=== PATIENT | female | born 1930 | race Caucasian/White ===

== ENCOUNTER 2019-03-31 10:36 | Inpatient (IN) | payer OTHER ==
[~2019-03-31] VITALS: Ht 152.4 cm; Wt 68.3 kg
[~2019-03-31 10:36] MED LIST: ACET500T98 PO; AMLO5TAB4 PO; ASPI-1044 PO; BICS PO; BROM1.7D9 OP; CLON-379 PO; CRAN425C4 PO; DOCU-144 PO; DOCU-29 PO; FAMO1TAB3 PO; FER325 PO; GABA300C16 PO; GLIP2.5T3 PO; HYDR25TA6 PO; INSU100C3 SQ; LACT10SO55 PO; LEVO112T57 PO; LOSA25TA2 PO; METF-849 PO; METO-319 PO; NITR0.4T32 SL; OXYC-281 PO; SIMV5TAB14 PO; SIMV5TAB31 PO; SITA100T11 PO; SITA25TA3 PO; ZOLP5TAB PO; [UNRECOGNIZED DRUG - CODE] IM
[2019-03-31] MEDS ORDERED: ONDANSETRON 4 MG INJ IV PRN ×2 (14:00→16:00)
[2019-03-31] MEDS ORDERED: ASPIRIN 81 MG TAB PO ONE (14:00)
[2019-03-31] MEDS ORDERED: ACETAMINOPHEN 325 MG TAB PO PRN ×2 (14:00→16:00)
--- NOTE | 2019-03-31 14:03 | ERD ---
ER Documentation Chief Complaint Chief Complaint CHEST TIGHTNESS TODAY. NO SOB. HPI This is an 88-year-old female with a past medical history of hypertension, hyperlipidemia, diabetes, coronary artery disease with a previous MN, CHF status post pacemaker, hypothyroidism who is presenting to the emergency department today for sudden onset moderate pressure-like mid substernal chest pressure radiating into the neck. The patient reports feeling a pressure in her head at this time as well. The patient reports that her symptoms lasted approximately 20 to 30 minutes before improving. However, she continues to endorse a mild pressure in her chest, which is unusual. She endorses shortness of breath during the episode as well, but this is improved now. She does not endorse any diaphoresis. She does not endorse any nausea or vomiting. The patient denies lightheadedness or dizziness. The patient denies feeling sick recently. The patient denies fever or chills. The patient has had no headache or vision changes. The patient does not endorse neck or back pain. The patient denies abdominal pain. The patient denies ch anges to bowel movements or urination. The patient has had no focal deficits. The patient has had no weakness or numbness or tingling to the face or extremities. ROS All systems reviewed and are negative except as per history of present illness. Medications Home Meds Reported Medications Famotidine/Ca Carb/Mag Hydrox (TUMS DUAL ACTION TABLET CHEW) 1 Each Tab.chew, 2 TAB PO DAILY, TAB.CHEW 03/31/19 Citric Acid/Sodium Citrate* (Bicitra* (PEDIATRIC)) 1 Meq/Ml Soln, 30 ML PO BID for 30 Days, BOTTLE 03/31/19 Simvastatin* (Simvastatin*) 5 Mg Tablet, 5 MG PO QHS, #30 TAB 03/31/19 Metoprolol Succinate* (Toprol XL*) 50 Mg Tab.er.24h, 50 MG PO DAILY, #30 TAB 03/31/19 Levothyroxine Sodium* (Levothyroxine Sodium*) 112 Mcg Tablet, 112 MCG PO BEFORE BREAKFAST, #30 TAB 03/31/19 Sitagliptin* (Januvia*) 25 Mg Tablet, 25 MG PO DAILY, #30 TAB 03/31/19 Hydrochlorothiazide* (Hydrochlorothiazide*) 25 Mg Tab, 25 MG PO DAILY, #30 TAB 03/31/19 Glipizide* (Glipizide ER*) 2.5 Mg Tab.er.24, 2.5 MG PO BID, TAB 03/31/19 Gabapentin* (Gabapentin*) 300 Mg Capsule, 300 MG PO DAILY, #60 CAP 03/31/19 Ferrous Sulfate* (Ferrous Sulfate*) 325 Mg Tabec, 325 MG PO TID, TAB 03/31/19 Docusate Sodium* (Colace*) 100 Mg Capsule, 100 MG PO DAILY, #30 CAP 03/31/19 Clonidine Hcl* (Clonidine Hcl*) 0.1 Mg Tab, 0.1 MG PO Q8, TAB 03/31/19 Bromfenac Sodium (Bromfenac Sodium) 1.7 Ml Drops, 1.7 ML OP QPM, BOTTLE 03/31/19 Discontinued Reported Medications Nitroglycerin* (Nitroglycerin* SL) 0.4 Mg Tab.subl, 0.4 MG SL CHEST [id number] PRN 11/11/12 Zolpidem Tartrate* (Ambien*) 5 Mg Tablet, 5 MG PO HS PRN 11/11/12 Oxycodone Hcl-Acetaminophen* (Percocet*) 1 Tab Tablet, 1 TAB PO Q3H PRN 11/11/12 Morphine Sulfate (Morphine) 2 Mg/Ml Soln, 3 MG IM SEVERE PAIN PRN 11/11/12 Lactulose (Lactulose) 10 G/15 Ml Solution, 30 G PO CONSTIPATION PRN 11/11/12 Insulin Aspart (Novolog) 100 U/Ml Cartridge, 0 SQ SLIDING SCALE 11/11/12 Docusate Sodium (Dss) 100 Mg Capsule, 200 MG PO PRN 11/11/12 Cranberry Extract (Cranberry Juice Powder) 425 Mg Capsule, 425 MG PO TID 11/11/12 Metformin* (Glucophage*) 500 Mg Tab, 250 MG PO BID 11/11/12 Amlodipine Besylate* (Norvasc*) 5 Mg Tablet, 5 MG PO DAILY 11/11/12 Losartan Potassium* (Cozaar*) 25 Mg Tablet, 12.5 MG PO BID 11/11/12 Simvastatin* (Zocor*) 5 Mg Tablet, 5 MG PO HS 11/11/12 Levothyroxine Sodium* (Levothyroxine Sodium*) 112 Mcg Tablet, 112 MCG PO DAILY 11/02/12 Acetaminophen (Tylenol) 500 Mg Tab, 500 MG PO PRN 07/27/12 Sitagliptin* (Januvia*) 100 Mg Tablet, 100 MG PO DAILY 07/27/12 Allergies Allergies: Coded Allergies: codeine (Verified Allergy, Unknown, 03/31/19) PMhx/Soc History of Surgery: Yes (2 PREVIOUS LT KNEE SURG.) Anesthesia Reaction: No Hx Neurological Disorder: No Hx Respiratory Disorders: No Hx Cardiac Disorders: Yes (Hypertension, hyperlipidemia, diabetes, coronary disease, MN 2008; PACEMAKER 02/2012) Hx Psychiatric Problems: Yes (REMOTE HISTORY OF HOSPITALIZATION) Hx Miscellaneous Medical Probl: Yes (Hypothyroidism) Hx Alcohol Use: No Hx Substance Use: No Hx Tobacco Use: No Smoking Status: Never smoker FmHx Family History: diabetes Physical Exam Vitals Vital Signs Date Temp Pulse Resp B/P (MAP) Pulse Ox O2 O2 Flow FiO2 Time Delivery Rate 03/31/19 Nasal 2 12:08 Cannula 03/31/19 97.8 60 20 160/84 95 10:51 (109) Physical Exam Const: No apparent distress, well-developed, well-nourished Head: Normocephalic, Atraumatic Eyes: Normal Conjunctiva. Pupils are oblong from previous ophthalmologic surgery. ENT: Normal External Ears, Nose and Mouth. Neck: Full range of motion. No meningismus. Resp: Clear to auscultation bilaterally, No wheezes, rales or rhonchi Cardio: Regular rate and rhythm. No murmurs, rubs or gallops. Pacemaker present. Abd: Soft, non tender, non distended. Normal bowel sounds Skin: No petechiae or rashes Back: No midline tenderness. No CVA tenderness Ext: No cyanosis, or edema Neur: Awake and alert, oriented 4. Cranial nerves intact. No facial droop. Normal strength, sensation and coordination. Psych: Normal Mood and Affect Result Diagram: 03/31/19 1128 03/31/19 1128 Results 24 hrs Laboratory Tests Test 03/31/19 11:28 White Blood Count 9.9 10^3/ul Red Blood Count 3.42 10^6/ul Hemoglobin 11.5 g/dl Hematocrit 35.9 % Mean Corpuscular Volume 105.0 fl Mean Corpuscular Hemoglobin 33.6 pg Mean Corpuscular Hemoglobin Concent 32.0 g/dl Red Cell Distribution Width 12.8 % Platelet Count 184 10^3/UL Mean Platelet Volume 11.4 fl Immature Granulocytes % 0.700 % Neutrophils % 61.6 % Lymphocytes % 16.4 % Monocytes % 7.1 % Eosinophils % 13.6 % Basophils % 0.6 % Nucleated Red Blood Cells % 0.0 /100WBC Immature Granulocytes # 0.070 10^3/ul Neutrophils # 6.1 10^3/ul Lymphocytes # 1.6 10^3/ul Monocytes # 0.7 10^3/ul Eosinophils # 1.3 10^3/ul Basophils # 0.1 10^3/ul Nucleated Red Blood Cells # 0.0 10^3/ul Prothrombin Time 13.5 Sec Prothrombin Time Ratio 1.1 INR International Normalized Ratio 1.02 Sodium Level 135 mmol/L Potassium Level 4.1 mmol/L Chloride Level 100 mmol/L Carbon Dioxide Level 25 mmol/L Anion Gap 10 Blood Urea Nitrogen 45 mg/dl Creatinine 3.34 mg/dl Est Glomerular Filtrat Rate mL/min mL/min Glucose Level 168 mg/dl Calcium Level 9.3 mg/dl Troponin I 0.020 ng/ml B-Type Natriuretic Peptide 1410 PG/ML Procedures/MDM MDM The patient's presentation warrants further investigation. Previous medical records, if available, were reviewed. LABS The patient's laboratory testing was obtained and reviewed. No emergent treatmen t was required unless described below. CBC: No E/o systemic infection or thrombocytopenia. Macrocytic anemia, not emergent. Chemistry: No E/o severe acidosis or alkalosis or diabetic ketoacidosis. Elevated creatinine concerning for acute kidney injury, though her previous blood work was from 2012. Troponin: Not negative but within normal limits BNP: Elevated, though in the setting of renal insufficiency. EKG EKG read by me: Rate/Rhythm: Junctional rhythm with a regular rate of 60 bpm Intervals: Normal QRS and QTc. No obvious P waves present. [place]: Left axis deviation Impression: T wave inversions in the lateral leads concerning for age- indeterminate ischemia. Junctional rhythm IMAGING Imaging and Radiology interpretation reviewed. CXR FINDINGS: Left chest pacemaker unchanged in appearance. Minimal basilar atelectasis. No acute air space infiltrates. No pleural effusion. No pneumothorax. The cardiomediastinal silhouette is unremarkable. IMPRESSION: Minimal basilar atelectasis. No acute air space infiltrates. Electronically viewed and signed by Darin Wiggins MD, on 03/31/2019 11:46 TREATMENT/DISPOSITION The patient presents for chest pain. The patient has lateral EKG changes. The patient's troponin is within normal limits, but it is not negative. The patient has a significant cardiac history including myocardial infarction. The patient's heart score is greater than 3, which places her beyond a low risk of an adverse cardiac event in the next 30 days. The patient was given a dose of aspirin in the emergency department. I do feel that she requires further assessment in the hospital. The patient's BNP is elevated, but this is in the setting of renal insufficiency. I do not see evidence of an acute heart failure exacerbation at this time. I do see a junctional rhythm on the EKG. The patient may benefit from pacemaker evaluation as well. The patient's chest xray does not reveal pneumonia or pneumothorax or pleural effusions or pulmonary edema. The patient does not have a widened mediastinum and does not have signs or symptoms concerning for thoracic aortic aneurysm or dissection. The patient does not have pneumomediastinum or signs concerning for esophageal tear or rupture. The patient has no clinical or radiographic signs of pericardial effusion or tamponade. The patient does not have pneumoperitoneum and I have decreased suspicion of viscus perforation as possible referred pain. The patient does not have a diagnosis of COPD and is not wheezing today. The patient is not tachypneic or hypoxic. The patient is breathing comfortably and without pleuritic pain. The patient is not on hormonal therapy. The patient has no history of clotting or bleeding disorders. The patient has no calf tenderness. The patient has had no hemoptysis. I have decreased suspicion for PE. The patient's creatinine is also quite elevated. This is of unclear chronicity. The patient's last blood work was drawn here in 2012. She had a normal renal function at that time. ADMISSION At this time, I feel that the patient requires admission for further evaluation and management. The patient will be admitted to panel in accordance with the patient's insurance. The patient was accepted by Dr. Kennedy at 1:50 PM on March 31, 2019. DISCLAIMER Inadvertent spelling and grammatical errors are likely due to EHR/dictation software use and do not reflect on the overall quality of patient care. Note that the electronic time recorded on this note does not necessarily reflect the actual time of the patient encounter. Departure Diagnosis: Primary Impression: Chest pain Chest pain type: unspecified Qualified Codes: R07.9 - Chest pain, unspecified Additional Impressions: Renal insufficiency Macrocytic anemia Elevated brain natriuretic peptide (BNP) level Condition: Serious CLEO DAWN MD Mar 31, 2019 14:01
--- NOTE | 2019-03-31 15:55 | HP ---
Date/Time of Note Date/Time of Note DATE: 03/31/19 TIME: 15:55 Assessment/Plan VTE Prophylaxis Pharmacological prophylaxis: heparin Lines/Catheters IV [facility]from [facility]ine [facility] Assessment/Plan Hospital Course 88-year-old female with comorbidities including HTN, DM type 2, hypothyroidism, CKD, PPM, and anemia, who came in with chest pain and will be admitted to inpatient setting. 1. Chest pain. Etiology unclear. Differentials including ACS versus muscular skeletal versus others. Less likely PE, provided the patient is saturating well. Obtain 2D echocardiogram to evaluate the left ventricular ejection fraction and to evaluate for any wall motion abnormalities. Trend troponins. Obtain cardiology consult. Continue aspirin. 2. Hypertension. Resume antihypertensives. Hold HCTZ. 3. Chronic kidney disease. Follows up with outpatient motor vehicle operator road supervisor. Continue to monitor BUN and creatinine closely. Use nephrotoxic drugs with caution. 4. Diabetes mellitus type 2. Hold oral agents. Start the patient on sliding scale insulin along with basal insulin. Obtain hemoglobin A1c to evaluate the blood glucose control over the past few weeks. 5. Chronic anemia. Resume iron supplements. 6. Permanent pacemaker status. Obtain cardiology evaluation. 7. Right heel ulcer. Follows up with the wound care clinic at [facility]. Inform the patient's vascular surgeon about the patient's admission. Plan: The patient will be admitted to inpatient telemetry floor. The patient will be started on a carbohydrate controlled, renal diet. The patient will be started on DVT prophylaxis and gastrointestinal prophylaxis. The patient will remain a full code. Activities will be as tolerated. The rest of the patient's management will be based on the clinical course, inputs from consultants, and the results of diagnostic studies. Based on the patient's clinical presentation, she most probably requires at least 1 midnight's stay for further management and evaluation of her clinical presentation. The patient was seen in collaboration with Dr. Kennedy. Result Diagram: 03/31/19 1128 03/31/19 1128 Results 24hrs Laboratory Tests Test 03/31/19 11:28 White Blood Count 9.9 Red Blood Count 3.42 L Hemoglobin 11.5 L Hematocrit 35.9 L Mean Corpuscular Volume 105.0 H Mean Corpuscular Hemoglobin 33.6 H Mean Corpuscular Hemoglobin Concent 32.0 Red Cell Distribution Width 12.8 Platelet Count 184 Mean Platelet Volume 11.4 H Immature Granulocytes % 0.700 H Neutrophils % 61.6 Lymphocytes % 16.4 Monocytes % 7.1 Eosinophils % 13.6 H Basophils % 0.6 Nucleated Red Blood Cells % 0.0 Immature Granulocytes # 0.070 H Neutrophils # 6.1 Lymphocytes # 1.6 Monocytes # 0.7 Eosinophils # 1.3 H Basophils # 0.1 Nucleated Red Blood Cells # 0.0 Prothrombin Time 13.5 Prothrombin Time Ratio 1.1 INR International Normalized Ratio 1.02 Sodium Level 135 Potassium Level 4.1 Chloride Level 100 Carbon Dioxide Level 25 Anion Gap 10 Blood Urea Nitrogen 45 H Creatinine 3.34 H Est Glomerular Filtrat Rate mL/min Glucose Level 168 Calcium Level 9.3 Troponin I 0.020 B-Type Natriuretic Peptide 1410 H HPI/ROS Admit Date/Time Admit Date/Time Hx of Present Illness Reason for admission: Chest pain. Consultants 1. Rashad Chaney, Cardiology. This is a 88-year-old female with past medical history of hypertension, diabetes mellitus type 2, hypothyroidism, chronic kidney disease who follows up with , chronic anemia, chronic constipation, and a history of permanent pacemaker placement. The patient came to the emergency room with chief complaint of chest pain that started since the night of 03/30/2019. The patient verbalized the chest pain as constant chest tightness. The patient was also verbalizing headache in the occipital area associated with the chest pain. The patient denied any radiation of the chest pain to her arms. She denied any nausea, vomiting, or diaphoresis. However, she was complaining of frequent belching on 03/31/2019. The patient denied any dizziness. She denied any changes in vision. She denied any fevers or chills. She denied any dyspnea or cough. The patient follows up with outpatient workday consultant, Dr. Chen. As per the patient, she had her permanent pacemaker checked recently and was told she needs to have the PPM battery replaced in the near future. Although, the patient verbalized that she had a heart attack, she denied any history of coronary angiogram, angioplasty, or stent placement. In the emergency room, the patient was noticed to have a blood pressure 160/84. The patient's initial set of troponin was negative. The patient's chest x-ray was showing minimal bibasilar atelectasis. Twelve-lead EKG was showing junctional rhythm. She was treated with a single dose of aspirin 324 mg orally. ROS Constitutional: no complaints Eyes: discharge ENT: no complaints Respiratory: no complaints Cardiovascular: chest pain, edema Gastrointestinal: other (reflux) Genitourinary: no complaints Musculoskeletal: no complaints Skin: skin lesions Neurologic: no complaints Endocrine: no complaints Lymphatic: no complaints Psychological: no complaints Immunologic: no complaints PMH/Family/Social Past Medical History 1. Hypertension. 2. Diabetes mellitus type 2. 3. Hypothyroidism. 4. Chronic kidney disease. 5. Anemia. 6. Chronic constipation. 7. Permanent pacemaker. 8. Right heel ulcer. 9. Medications Current Medications Ondansetron HCl (Zofran Inj) 4 mg ER BRIDGE PRN IV NAUSEA/VOMITING; Start 03/31/19 at 14:00; Stop 04/01/19 at 13:59 Acetaminophen (Tylenol Tab) 650 mg ER BRIDGE PRN PO .MILD PAIN 1-3 OR TEMP; Start 03/31/19 at 14:00; Stop 04/01/19 at 13:59 Coded Allergies: codeine (Verified Allergy, Unknown, 03/31/19) Past Surgical History 1. Cholecystectomy. 2. Hysterectomy. 3. Bilateral knee surgery. 4. Right shoulder surgery. Family History Significant Family History: diabetes Social History Lives at home with her . Alcohol Use: none Smoking Status: Never smoker Drug Use: none Exam/Review of Systems Vital Signs Vitals Vital Signs Date Temp Pulse Resp B/P (MAP) Pulse Ox O2 O2 Flow FiO2 Time Delivery Rate 03/31/19 98.2 60 20 143/78 100 Room Air 13:44 (99) 03/31/19 2 12:08 Exam Exam General: Adequately build 88 year-old female lying in bed in no apparent distress. HEENT: Normocephalic, atraumatic. Eyes: Anicteric sclerae, conjunctivae clear. ENT: Nasal septum midline, oral mucosa moist. Neck supple. Respiratory: Bilaterally diminished breath sounds. Basilar rales. Cardiovascular: S1, S2 heard. No murmurs or gallops. Abdomen: Soft, nontender, and nondistended. Bowel sounds positive in all 4 quadrants. Genitourinary: Deferred. Extremities: No cyanosis, no clubbing. Right knee and right lower extremity edema. Right heel dressing. Surgical scars on bilateral knees. Surgical scar over right shoulder. Neurologic: Cranial nerves II through XII grossly intact. The patient is awake, alert, and oriented. Skin: Papular lesions on the right miramontes that is erythematous. Additional Comments CXR IMPRESSION: Minimal basilar atelectasis. No acute air space infiltrates. LIBRA MEREDITH NP Mar 31, 2019 15:55
[2019-03-31] MEDS ORDERED: NACL 0.9% 3 ML SYG IV SCH (16:00)
[2019-03-31] MEDS ORDERED: HYDROCODONE/APAP (5/325) TAB PO PRN (16:00)
[2019-03-31] MEDS ORDERED: NITROGLYCERIN (SL) 0.4 MG TAB SL PRN (16:00)
--- NOTE | 2019-03-31 16:28 | CONS ---
Assessment/Plan Assessment/Plan Hospital Course (Demo Recall) Chest pain: The main component of her symptoms was the headache but she did also have chest pain. Initial EKG and troponin are unremarkable. Will need serial trops and will plan for MPI in am. Unless high risk territory or NSTEMI, plan is for medical management with her renal dysfunction Headache PPM: Verimed 2011. Per , it is at end of life and needs a battery change which is being planned in 1-2 months. Currently atrial paced HTN CKD: unknown baseline Cr 3.3 on admission -Lexiscan in am -trend trops -ASA, simvastatin -metoprolol succ 50mg Consultation Date/Type/Reason Admit Date/Time Date of Consultation: Mar 31, 2019 Type of Consult Cardiology Reason for Consultation Chest pain Requesting Provider: LIBRA MEREDITH NP Date/Time of Note DATE: 03/31/19 TIME: 16:20 Hx of Present Illness 88 yo F with a h/o PPM Verimed 2011, HTN, CKD (unknown baseline), who presented with chest pain and headache. She notes that yesterday she was sitting down when she started to feel a headache and tightness in her chest. She had never felt this so she was worried. The headache was worse than the chest pain. She slept and when she woke up she still had mild symptoms so she decided to come in for evaluation. Her chest pain resolved before she came in but she still has a very mild headache. Otherwise no complaints. She denies prior RI/CAD/PCI. Her physicians are all in [place]. per hPI Past Medical History per hPI Home Meds Reported Medications Famotidine/Ca Carb/Mag Hydrox (TUMS DUAL ACTION TABLET CHEW) 1 Each Tab.chew, 2 TAB PO DAILY, TAB.CHEW 03/31/19 Citric Acid/Sodium Citrate* (Bicitra* (PEDIATRIC)) 1 Meq/Ml Soln, 30 ML PO BID for 30 Days, BOTTLE 03/31/19 Simvastatin* (Simvastatin*) 5 Mg Tablet, 5 MG PO QHS, #30 TAB 03/31/19 Metoprolol Succinate* (Toprol XL*) 50 Mg Tab.er.24h, 50 MG PO DAILY, #30 TAB 03/31/19 Levothyroxine Sodium* (Levothyroxine Sodium*) 112 Mcg Tablet, 112 MCG PO BEFORE BREAKFAST, #30 TAB 03/31/19 Sitagliptin* (Januvia*) 25 Mg Tablet, 25 MG PO DAILY, #30 TAB 03/31/19 Hydrochlorothiazide* (Hydrochlorothiazide*) 25 Mg Tab, 25 MG PO DAILY, #30 TAB 03/31/19 Glipizide* (Glipizide ER*) 2.5 Mg Tab.er.24, 2.5 MG PO BID, TAB 03/31/19 Gabapentin* (Gabapentin*) 300 Mg Capsule, 300 MG PO DAILY, #60 CAP 03/31/19 Ferrous Sulfate* (Ferrous Sulfate*) 325 Mg Tabec, 325 MG PO TID, TAB 03/31/19 Docusate Sodium* (Colace*) 100 Mg Capsule, 100 MG PO DAILY, #30 CAP 03/31/19 Clonidine Hcl* (Clonidine Hcl*) 0.1 Mg Tab, 0.1 MG PO Q8, TAB 03/31/19 Bromfenac Sodium (Bromfenac Sodium) 1.7 Ml Drops, 1.7 ML OP QPM, BOTTLE 03/31/19 Discontinued Reported Medications Nitroglycerin* (Nitroglycerin* SL) 0.4 Mg Tab.subl, 0.4 MG SL CHEST [id number] PRN 11/11/12 Zolpidem Tartrate* (Ambien*) 5 Mg Tablet, 5 MG PO HS PRN 11/11/12 Oxycodone Hcl-Acetaminophen* (Percocet*) 1 Tab Tablet, 1 TAB PO Q3H PRN 11/11/12 Morphine Sulfate (Morphine) 2 Mg/Ml Soln, 3 MG IM SEVERE PAIN PRN 11/11/12 Lactulose (Lactulose) 10 G/15 Ml Solution, 30 G PO CONSTIPATION PRN 11/11/12 Insulin Aspart (Novolog) 100 U/Ml Cartridge, 0 SQ SLIDING SCALE 11/11/12 Docusate Sodium (Dss) 100 Mg Capsule, 200 MG PO PRN 11/11/12 Cranberry Extract (Cranberry Juice Powder) 425 Mg Capsule, 425 MG PO TID 11/11/12 Metformin* (Glucophage*) 500 Mg Tab, 250 MG PO BID 11/11/12 Amlodipine Besylate* (Norvasc*) 5 Mg Tablet, 5 MG PO DAILY 11/11/12 Losartan Potassium* (Cozaar*) 25 Mg Tablet, 12.5 MG PO BID 11/11/12 Simvastatin* (Zocor*) 5 Mg Tablet, 5 MG PO HS 11/11/12 Levothyroxine Sodium* (Levothyroxine Sodium*) 112 Mcg Tablet, 112 MCG PO DAILY 11/02/12 Acetaminophen (Tylenol) 500 Mg Tab, 500 MG PO PRN 07/27/12 Sitagliptin* (Januvia*) 100 Mg Tablet, 100 MG PO DAILY 07/27/12 Medications Current Medications Ondansetron HCl (Zofran Inj) 4 mg ER BRIDGE PRN IV NAUSEA/VOMITING; Start 03/31/19 at 14:00; Stop 04/01/19 at 13:59 Acetaminophen (Tylenol Tab) 650 mg ER BRIDGE PRN PO .MILD PAIN 1-3 OR TEMP; Start 03/31/19 at 14:00; Stop 04/01/19 at 13:59 IV Flush (NS 3 ml) 3 ml PER PROTOCOL IV ; Start 03/31/19 at 16:00 Ondansetron HCl (Zofran Inj) 4 mg Q6H PRN IV NAUSEA/VOMITING; Start 03/31/19 at 16:00 Nitroglycerin (Nitroglycerin (Sl Tab) 0.4 Mg) 1 tab Q5M PRN SL .CHEST PAIN; Start 03/31/19 at 16:00 Acetaminophen (Tylenol Tab) 650 mg Q6H PRN PO .PAIN 1-3 OR TEMP; Start 03/31/19 at 16:00 Acetaminophen/ Hydrocodone Bitart ([place] (5/325)) 1 tab Q6H PRN PO .PAIN 4-6; Start 03/31/19 at 16:00 Heparin Sodium (Porcine) (Heparin (5000 Units/1ml)) 5,000 unit Q12 SC ; Start 03/31/19 at 21:00 Citric Acid/ Sodium Citrate (Bicitra) 30 ml BID PO ; Start 03/31/19 at 21:00 Clonidine (Catapres) 0.1 mg Q8 PO ; Start 03/31/19 at 22:00 Docusate Sodium (Colace) 100 mg DAILY PO ; Start 04/01/19 at 09:00 Ferrous Sulfate (Ferrous Sulfate (Ec)) 325 mg TID PO ; Start 03/31/19 at 21:00 Gabapentin (Neurontin) 300 mg DAILY PO ; Start 04/01/19 at 09:00 Levothyroxine Sodium (Synthroid) 112 mcg BEFORE BREAKFAST PO ; Start 04/01/19 at 07:00 Metoprolol Succinate (Toprol Xl) 50 mg DAILY PO ; Start 04/01/19 at 09:00 Miscellaneous Information 5 mg QHS PO ; Start 03/31/19 at 21:00; Status UNV Aspirin (Halfprin) 81 mg DAILY PO ; Start 04/01/19 at 09:00; Status UNV Miscellaneous Information (* Miscellaneous Pharmacy Order) Discontinue current oral sulfonylur... ONCE ONCE XX ; Start 03/31/19 at 16:30; Stop 03/31/19 at 16:31; Status UNV Insulin Glargine (Lantus) 10 units DAILY@2000 SC ; Start 03/31/19 at 20:00; Status UNV Miscellaneous Information (* Miscellaneous Pharmacy Order) HYPOGLYCEMIA PROTOCOL w... ONCE ONCE XX ; Start 03/31/19 at 16:30; Stop 03/31/19 at 16:31; Status UNV Insulin Aspart (Novolog Insulin Pen) NOVOLOG *MILD* ALGORITHM WITH MEALS BEDTIME SC ; Start 03/31/19 at 18:00; Status UNV Allergies: Coded Allergies: codeine (Verified Allergy, Unknown, 03/31/19) Social History Alcohol Use: none Smoking Status: Never smoker Drug Use: none Exam/Review of Systems Vital Signs Vitals Vital Signs Date Temp Pulse Resp B/P (MAP) Pulse Ox O2 O2 Flow FiO2 Time Delivery Rate 03/31/19 98.2 60 20 143/78 100 Room Air 13:44 (99) 03/31/19 2 12:08 Exam Constitutional: alert, oriented Psych: no complaints, nl mood/affect Head: normocephalic, atraumatic Neck: No jvd Respiratory: clear to auscultation; No crackles/rales Cardiovascular: regular rate and rhythm; No edema, No systolic murmur Gastrointestinal: soft, non-tender; No distended Neurological: nl mental status, nl speech Labs Result Diagram: 03/31/19 1128 03/31/19 1128 Results 24hrs Laboratory Tests Test 03/31/19 11:28 White Blood Count 9.9 Red Blood Count 3.42 L Hemoglobin 11.5 L Hematocrit 35.9 L Mean Corpuscular Volume 105.0 H Mean Corpuscular Hemoglobin 33.6 H Mean Corpuscular Hemoglobin Concent 32.0 Red Cell Distribution Width 12.8 Platelet Count 184 Mean Platelet Volume 11.4 H Immature Granulocytes % 0.700 H Neutrophils % 61.6 Lymphocytes % 16.4 Monocytes % 7.1 Eosinophils % 13.6 H Basophils % 0.6 Nucleated Red Blood Cells % 0.0 Immature Granulocytes # 0.070 H Neutrophils # 6.1 Lymphocytes # 1.6 Monocytes # 0.7 Eosinophils # 1.3 H Basophils # 0.1 Nucleated Red Blood Cells # 0.0 Prothrombin Time 13.5 Prothrombin Time Ratio 1.1 INR International Normalized Ratio 1.02 Sodium Level 135 Potassium Level 4.1 Chloride Level 100 Carbon Dioxide Level 25 Anion Gap 10 Blood Urea Nitrogen 45 H Creatinine 3.34 H Est Glomerular Filtrat Rate mL/min Glucose Level 168 Calcium Level 9.3 Troponin I 0.020 B-Type Natriuretic Peptide 1410 H Medications Medications Current Medications Ondansetron HCl (Zofran Inj) 4 mg ER BRIDGE PRN IV NAUSEA/VOMITING; Start at 14:00; Stop 04/01/19 at 13:59 Acetaminophen (Tylenol Tab) 650 mg ER BRIDGE PRN PO .MILD PAIN 1-3 OR TEMP; Start 03/31/19 at 14:00; Stop 04/01/19 at 13:59 IV Flush (NS 3 ml) 3 ml PER PROTOCOL IV ; Start 03/31/19 at 16:00 Ondansetron HCl (Zofran Inj) 4 mg Q6H PRN IV NAUSEA/VOMITING; Start 03/31/19 at 16:00 Nitroglycerin (Nitroglycerin (Sl Tab) 0.4 Mg) 1 tab Q5M PRN SL .CHEST PAIN; Start 03/31/19 at 16:00 Acetaminophen (Tylenol Tab) 650 mg Q6H PRN PO .PAIN 1-3 OR TEMP; Start 03/31/19 at 16:00 Acetaminophen/ Hydrocodone Bitart ([place] (5/325)) 1 tab Q6H PRN PO .PAIN 4-6; Start 03/31/19 at 16:00 Heparin Sodium (Porcine) (Heparin (5000 Units/1ml)) 5,000 unit Q12 SC ; Start 03/31/19 at 21:00 Citric Acid/ Sodium Citrate (Bicitra) 30 ml BID PO ; Start 03/31/19 at 21:00 Clonidine (Catapres) 0.1 mg Q8 PO ; Start 03/31/19 at 22:00 Docusate Sodium (Colace) 100 mg DAILY PO ; Start 04/01/19 at 09:00 Ferrous Sulfate (Ferrous Sulfate (Ec)) 325 mg TID PO ; Start 03/31/19 at 21:00 Gabapentin (Neurontin) 300 mg DAILY PO ; Start 04/01/19 at 09:00 Levothyroxine Sodium (Synthroid) 112 mcg BEFORE BREAKFAST PO ; Start 04/01/19 at 07:00 Metoprolol Succinate (Toprol Xl) 50 mg DAILY PO ; Start 04/01/19 at 09:00 Miscellaneous Information 5 mg QHS PO ; Start 03/31/19 at 21:00; Status UNV Aspirin (Halfprin) 81 mg DAILY PO ; Start 04/01/19 at 09:00; Status UNV Miscellaneous Information (* Miscellaneous Pharmacy Order) Discontinue current oral sulfonylur... ONCE ONCE XX ; Start 03/31/19 at 16:30; Stop 03/31/19 at 16:31; Status UNV Insulin Glargine (Lantus) 10 units DAILY@2000 SC ; Start 03/31/19 at 20:00; Status UNV Miscellaneous Information (* Miscellaneous Pharmacy Order) HYPOGLYCEMIA PROTOCOL w... ONCE ONCE XX ; Start 03/31/19 at 16:30; Stop 03/31/19 at 16:31; Status UNV Insulin Aspart (Novolog Insulin Pen) NOVOLOG *MILD* ALGORITHM WITH MEALS BEDTIME SC ; Start 03/31/19 at 18:00; Status UNV NAA CAI Mar 31, 2019 16:28
[2019-03-31] MEDS ORDERED: DEXTROSE 50% 50 ML SYRINGE IV PRN ×2 (16:30)
[2019-03-31] MEDS ORDERED: GLUCOSE GEL 15 GRAM TUBE PO PRN ×2 (16:30)
[2019-03-31] MEDS ORDERED: GLUCAGON 1 MG INJ IM PRN (16:30)
[2019-03-31] MEDS ORDERED: GLUCOSE GEL 15 GRAM TUBE BUCCAL PRN (16:30)
[2019-03-31] MEDS: INSULIN ASPART [NOVOLOG] 3 ML PEN SC SCH ×2 (18:00→21:14)
[2019-03-31 18:29] VITALS: Ht 152.4 cm; Wt 68.3 kg
[2019-03-31 18:41] VITALS: PULSE 61; RESP 18
[2019-03-31 18:51] VITALS: BP 193/88
[2019-03-31 19:53] VITALS: BP 179/88; PULSE 60; RESP 18
[2019-03-31] MEDS ORDERED: INSULIN GLARGINE [LANTus] (100 UNITS/ML) SYG SC SCH (20:00)
[2019-03-31] MEDS: CITRIC ACID/NA CITRATE 30 ML CUP PO SCH (20:48)
[2019-03-31] MEDS: FERROUS SULFATE (EC) 325 MG TAB PO SCH (20:49)
[2019-03-31] MEDS ORDERED: ATORVASTATIN 10 MG TAB PO SCH (21:00)
[2019-03-31] MEDS ORDERED: FAMOTIDINE 20 MG TAB PO SCH (21:00)
[2019-03-31] MEDS ORDERED: NON-FORMULARY/PATIENT OWN MED (Simvastatin* 5 MG) PO SCH (21:00)
[2019-03-31] MEDS: HEPARIN 5,000 UNIT/1 ML VIAL SC SCH (21:15)
[2019-03-31 21:33] VITALS: BP 159/72; PULSE 60
[2019-03-31 23:25] VITALS: BP 145/61; PULSE 60; RESP 20
[2019-04-01 04:00] VITALS: BP 137/69; PULSE 60; RESP 17
[2019-04-01] MEDS ORDERED: LEVOTHYROXINE 112 MCG TAB PO SCH (07:00)
[2019-04-01 07:15] VITALS: BP 136/62; PULSE 60; RESP 18
[2019-04-01] MEDS: INSULIN ASPART [NOVOLOG] 3 ML PEN SC SCH ×2 (08:08→12:31)
[2019-04-01] MEDS: FERROUS SULFATE (EC) 325 MG TAB PO SCH ×2 (08:17→13:15)
[2019-04-01] MEDS: CITRIC ACID/NA CITRATE 30 ML CUP PO SCH (08:17)
[2019-04-01] MEDS: HEPARIN 5,000 UNIT/1 ML VIAL SC SCH (08:24)
[2019-04-01] MEDS ORDERED: GABAPENTIN 300 MG CAP PO SCH (09:00)
[2019-04-01] MEDS ORDERED: METOPROLOL (XL) 50 MG TAB PO SCH (09:00)
[2019-04-01] MEDS ORDERED: DOCUSATE SODIUM 100 MG CAP PO SCH (09:00)
[2019-04-01] MEDS ORDERED: ASPIRIN (EC) 81 MG TAB PO SCH (09:00)
[2019-04-01] MEDS ORDERED: REGADENOSON 0.4 MG/5 ML SYG ONE (09:07)
--- NOTE | 2019-04-01 09:51 | RADRPT ---
Echocardiogram Report Patient Name: MI PACEatient ID: [id number] : 10 (88y 11m)Study Date: 04/01/2019 7:31:33 AM Gender: FAccession #: [id number] Tech: Sagar Dawson [facility] Location: 504 Ref.Physician: LIBRA MEREDITH Height(Cm): BSA: Weight(Kg): Quality: AdequateOrder Physician: LIBRA MEREDITH Account #: Procedures: Echocardiographic Report: Transthoracic echocardiogram with complete 2D, M-Mode, and doppler examination. Indications: Chest Pain. Measurements: 2D/M Mode Doppler Measurement Value Normal Range Measurement Value Normal Range LVIDd 2D 3.4 [ 3.8 - 5.2 ] cm AV Peak Dominik 1.3 [ 100.0 - 170.0 ] cm/sec LVIDs 2D 1.6 [ 2.2 - 3.5 ] cm AV Peak PG 7.0 [ 2.0 - 9.0 ] mmHg LVPWd 2D 1.3 [ 0.6 - 0.9 ] cm LVOT Peak Dominik 0.9 [ 70.0 - 110.0 ] cm/sec IVSd 2D 1.1 [ 0.6 - 0.9 ] cm LVOT Peak PG 3.0 [ 2.0 - 6.0 ] mmHg AoR Diam 2D 2.8 [ 2.3 - 3.1 ] cm MV E Peak Dominik 0.7 [ 60.0 - 130.0 ] cm/sec EDV 2D 46.4 [ 46.0 - 106.0 ] ml MV A Peak Dominik 0.9 [ 100.0 - 120.0 ] cm/sec ESV 2D 6.8 [ 14.0 - 42.0 ] ml MV E/A 0.8 [ 0.8 - 1.5 ] ratio EF 2D 85.3 [ 54.0 - 74.0 ] percent MV Decel Time 246 [ 104 - 258 ] msec LA Dimen 2D 3.6 [ 2.7 - 3.8 ] cm Lat E` Dominik 0.1 [ 10.0 - 15.0 ] cm/sec Lateral E/E` 11.7 [ 1.0 - 2.0 ] ratio MV E/A 0.8 [ 0.8 - 1.5 ] ratio TR Peak Dominik 1.8 [ 100.0 - 280.0 ] cm/sec TR Peak PG 12.0 mmHg RVSP 15.0 [ 10.0 - 36.0 ] mmHg RA Pressure 3.0 mmHg Findings: Left Ventricle: Normal left ventricular systolic function. Normal left ventricular cavity size. Mild concentric left ventricular hypertrophy. Ejection fraction is visually estimated at 65 %. Tissue Doppler/Mitral Doppler indices are consistent with impaired relaxation (Stage I diastolic dysfunction). Right Ventricle: Normal right ventricular size. Normal right ventricular systolic function. Left Atrium: There is moderate enlargement of left atrium. Right Atrium: The right atrium is normal in size. Mitral Valve: Normal appearance and function of the mitral valve with trace physiologic regurgitation. Aortic Valve: No significant aortic stenosis or insufficiency. Aortic cusps appear mildly calcified. Tricuspid Valve: Normal appearance and function of the tricuspid valve with trace physiologic regurgitation. Normal right ventricular systolic pressure. The estimated Peak RVSP is 15 mmHg. Pulmonic Valve: Pulmonic valve not well visualized. Pericardium: Normal pericardium with no significant pericardial effusion. Aorta: Normal aortic root. IVC: Normal size and normal respiratory collapse consistent with normal right atrial pressure. Conclusions: Normal left ventricular systolic function. Normal left ventricular cavity size. Mild concentric left ventricular hypertrophy. Ejection fraction is visually estimated at 65 %. Tissue Doppler/Mitral Doppler indices are consistent with impaired relaxation (Stage I diastolic dysfunction). No significant valvular stenosis or regurgitation seen. Normal right ventricular systolic pressure. The estimated Peak RVSP is 15 mmHg. Normal size and normal respiratory collapse consistent with normal right atrial pressure. Electronically Signed By: Rashad Chaney 2019-04-01 09:50:44 PDT
--- NOTE | 2019-04-01 09:53 | CONS ---
Assessment/Plan Assessment/Plan Hospital Course (Demo Recall) Chest pain: The main component of her symptoms was the headache but she did also have chest pain. EKG and troponins are unremarkable. Echo with preserved EF. MPI this am pending. Unless high risk territory or NSTEMI, plan is for medical management with her renal dysfunction Headache: resolved PPM: MENA SOCIAL 2011. Per , it is at end of life and needs a battery change which is being planned in 1-2 months. Currently atrial paced HTN CKD: unknown baseline Cr 3.3 on admission, down to 2.9 -if Lexiscan does not show large territory ischemia, ok for discharge and f/u with her outpt mini shifter -ASA, simvastatin -metoprolol succ 50mg -clonidine Consultation Date/Type/Reason Admit Date/Time Mar 31, 2019 at 13:53 Initial Consult Date 03/31/19 Type of Consult Cardiology Requesting Provider: LIBRA MEREDITH NP Date/Time of Note DATE: 04/01/19 TIME: 09:51 24 HR Interval Summary Free Text/Dictation No events. No further chest pain or headache. No complaints Exam/Review of Systems Vital Signs Vitals Vital Signs Date Temp Pulse Resp B/P (MAP) Pulse Ox O2 O2 Flow FiO2 Time Delivery Rate 04/01/19 98.1 60 18 136/62 100 Nasal 07:15 (86) Cannula 03/31/19 2.0 19:55 Exam Constitutional: alert, oriented Psych: no complaints, nl mood/affect Neck: supple; No jvd Respiratory: clear to auscultation; No crackles/rales Cardiovascular: regular rate and rhythm; No edema, No systolic murmur Gastrointestinal: soft, non-tender; No distended Musculoskeletal: nl extremities to inspection Neurological: nl mental status, nl speech Labs Result Diagram: 04/01/19 0624 04/01/19 0624 Results 24hrs Laboratory Tests Test 03/31/19 11:28 03/31/19 17:04 03/31/19 18:38 03/31/19 20:47 White Blood Count 9.9 Red Blood Count 3.42 L Hemoglobin 11.5 L Hematocrit 35.9 L Mean Corpuscular Volume 105.0 H Mean Corpuscular 33.6 H Hemoglobin Mean Corpuscular 32.0 Hemoglobin Concent Red Cell Distribution 12.8 Width Platelet Count 184 Mean Platelet Volume 11.4 H Immature Granulocytes % 0.700 H Neutrophils % 61.6 Lymphocytes % 16.4 Monocytes % 7.1 Eosinophils % 13.6 H Basophils % 0.6 Nucleated Red Blood 0.0 Cells % Immature Granulocytes # 0.070 H Neutrophils # 6.1 Lymphocytes # 1.6 Monocytes # 0.7 Eosinophils # 1.3 H Basophils # 0.1 Nucleated Red Blood 0.0 Cells # Prothrombin Time 13.5 Prothrombin Time Ratio 1.1 INR International 1.02 Normalized Ratio Sodium Level 135 Potassium Level 4.1 Chloride Level 100 Carbon Dioxide Level 25 Anion Gap 10 Blood Urea Nitrogen 45 H Creatinine 3.34 H Est Glomerular Filtrat Rate mL/min Glucose Level 168 Hemoglobin A1c 7.2 H Calcium Level 9.3 Troponin I 0.020 0.018 B-Type Natriuretic 1410 H Peptide Thyroid Stimulating 15.900 H Hormone (TSH) Creatine Kinase 95 Creatine Kinase Index 1.1 Creatinine Kinase MB 1.03 (Mass) Free Thyroxine 1.65 Bedside Glucose 160 250 H Test 04/01/19 00:21 04/01/19 06:24 04/01/19 08:03 Creatine Kinase 72 Creatine Kinase Index 0.9 Creatinine Kinase MB 0.68 (Mass) Troponin I 0.032 0.035 White Blood Count 7.7 # Red Blood Count 3.27 L Hemoglobin 11.2 L Hematocrit 34.8 L Mean Corpuscular Volume 106.4 H Mean Corpuscular 34.3 H Hemoglobin Mean Corpuscular 32.2 Hemoglobin Concent Red Cell Distribution 12.7 Width Platelet Count 168 Mean Platelet Volume 11.3 H Immature Granulocytes % 0.700 H Neutrophils % 59.4 Lymphocytes % 16.0 Monocytes % 7.6 Eosinophils % 15.4 H Basophils % 0.9 Nucleated Red Blood 0.0 Cells % Immature Granulocytes # 0.050 H Neutrophils # 4.6 Lymphocytes # 1.2 Monocytes # 0.6 Eosinophils # 1.2 H Basophils # 0.1 Nucleated Red Blood 0.0 Cells # Sodium Level 136 Potassium Level 4.6 Chloride Level 100 Carbon Dioxide Level 28 Anion Gap 8 Blood Urea Nitrogen 46 H Creatinine 2.87 H Est Glomerular Filtrat Rate mL/min Glucose Level 170 Calcium Level 8.8 Phosphorus Level 4.8 Magnesium Level 1.9 Triglycerides Level 128 Cholesterol Level 143 LDL Cholesterol, 74 Calculated HDL Cholesterol 43 Cholesterol/HDL Ratio 3.3 Bedside Glucose 167 Medications Medications Current Medications Ondansetron HCl (Zofran Inj) 4 mg ER BRIDGE PRN IV NAUSEA/VOMITING; Start 03/31/19 at 14:00; Stop 04/01/19 at 13:59 Acetaminophen (Tylenol Tab) 650 mg ER BRIDGE PRN PO .MILD PAIN 1-3 OR TEMP; Start 03/31/19 at 14:00; Stop 04/01/19 at 13:59 IV Flush (NS 3 ml) 3 ml PER PROTOCOL IV ; Start 03/31/19 at 16:00 Ondansetron HCl (Zofran Inj) 4 mg Q6H PRN IV NAUSEA/VOMITING; Start 03/31/19 at 16:00 Nitroglycerin (Nitroglycerin (Sl Tab) 0.4 Mg) 1 tab Q5M PRN SL .CHEST PAIN; Start 03/31/19 at 16:00 Acetaminophen (Tylenol Tab) 650 mg Q6H PRN PO .PAIN 1-3 OR TEMP; Start 03/31/19 at 16:00 Acetaminophen/ Hydrocodone Bitart ([place] (5/325)) 1 tab Q6H PRN PO .PAIN 4-6; Start 03/31/19 at 16:00 Heparin Sodium (Porcine) (Heparin (5000 Units/1ml)) 5,000 unit Q12 SC Last administered on 04/01/19at 08:24; Admin Dose 5,000 UNIT; Start 03/31/19 at 21:00 Citric Acid/ Sodium Citrate (Bicitra) 30 ml BID PO Last administered on 04/01/19at 08:17; Admin Dose 30 ML; Start 03/31/19 at 21:00 Clonidine (Catapres) 0.1 mg Q8 PO Last administered on 04/01/19at 06:18; Admin Dose 0.1 MG; Start 03/31/19 at 22:00 Docusate Sodium (Colace) 100 mg DAILY PO Last administered on 04/01/19 08:29; Admin Dose 100 MG; Start 04/01/19 at 09:00 Ferrous Sulfate (Ferrous Sulfate (Ec)) 325 mg TID PO Last administered on 04/01/19 08:17; Admin Dose 325 MG; Start 03/31/19 at 21:00 Gabapentin (Neurontin) 300 mg DAILY PO Last administered on 04/01/19 08:17; Admin Dose 300 MG; Start 04/01/19 at 09:00 Levothyroxine Sodium (Synthroid) 112 mcg BEFORE BREAKFAST PO Last administered on 04/01/19 06:18; Admin Dose 112 MCG; Start 04/01/19 at 07:00 Metoprolol Succinate (Toprol Xl) 50 mg DAILY PO Last administered on 04/01/19 08:18; Admin Dose 50 MG; Start 04/01/19 at 09:00 Aspirin (Halfprin) 81 mg DAILY PO Last administered on 04/01/19 08:18; Admin Dose 81 MG; Start 04/01/19 at 09:00 Insulin Glargine (Lantus) 10 units DAILY@2000 SC Last administered on 03/31/19 21:14; Admin Dose 10 UNITS; Start 03/31/19 at 20:00 Insulin Aspart (Novolog Insulin Pen) NOVOLOG *MILD* ALGORITHM WITH MEALS BEDTIME SC Last administered on 04/01/19 08:08; Admin Dose 1 UNIT; Start 03/31/19 at 18:00 Miscellaneous Information 1 ea NOTE XX ; Start 03/31/19 at 16:30 Glucose (Glutose) 15 gm Q15M PRN PO DECREASED GLUCOSE; Start 03/31/19 at 16:30 Glucose (Glutose) 22.5 gm Q15M PRN PO DECREASED GLUCOSE; Start 03/31/19 at 16:30 Dextrose (D50w Syringe) 25 ml Q15M PRN IV DECREASED GLUCOSE; Start 03/31/19 at 16:30 Dextrose (D50w Syringe) 50 ml Q15M PRN IV DECREASED GLUCOSE; Start 03/31/19 at 16:30 Glucagon (Glucagen) 1 mg Q15M PRN IM DECREASED GLUCOSE; Start 03/31/19 at 16:30 Glucose (Glutose) 15 gm Q15M PRN BUCCAL DECREASED GLUCOSE; Start 03/31/19 at 16:30 Atorvastatin Calcium (Lipitor) 10 mg DAILY@21 PO Last administered on 03/31/19 20:48; Admin Dose 10 MG; Start 03/31/19 at 21:00 Famotidine (Pepcid) 20 mg DAILY@2100 PO Last administered on 03/31/19 20:49; Admin Dose 20 MG; Start 03/31/19 at 21:00 NAA CAI Apr 01, 2019 09:53
--- NOTE | 2019-04-01 10:14 | QN ---
Documentation Comment Nuclear medicine myocardial perfusion imaging: Date: 04/01/19 Indication: chest pain After informed consent, the patient was given IV Lexiscan. Pt was monitored for a total of 8 minutes post-infusion without any sings of arrhythmias. Patient had no chest pain or EKG changes. Please refer to separate note for imaging results. NAA CAI Apr 01, 2019 10:14
[2019-04-01 11:15] VITALS: BP 174/76; PULSE 60; RESP 20
--- NOTE | 2019-04-01 14:06 | PDOCDIS ---
Discharge Instructions CONDITION [id number] Patient Condition: [id number] Stable HOME CARE INSTRUCTIONS: [id number] Special Diet: [id number] Carbohydrate controlled, low-cholesterol FOLLOW UP/APPOINTMENTS Follow-up Plan Follow-up with your outpatient court supervisor at the earliest. OTHER ORDERS: Other Orders: 1. Resume home medications. Start taking low-dose aspirin. 2. Follow a low-cholesterol, low carbohydrate diet. 3. Resume activities as tolerated. 4. Follow-up with your court supervisor with the results of the stress test from [facility] at the earliest. 5. Please go to the nearest emergency room if you have any chest pain, si gnificant shortness of breath, or any other unusual signs/symptoms. LIBRA MEREDITH NP Apr 01, 2019 14:06
--- NOTE | 2019-04-01 14:19 | CONS ---
DATE OF ADMISSION: 03/31/2019 DATE OF CONSULTATION: 04/01/2019 REFERRING PHYSICIAN: Dr. Deborah Kennedy. REASON FOR CONSULTATION: Followup right heel ulcer. HISTORY OF PRESENT ILLNESS: This is a very pleasant 88-year-old woman. She has diabetes, hypertensi on, chronic kidney disease. She has history of congestive heart failure. She has a pacemaker. I sa w her for the first time about a week ago for a nonhealing ulcer of the right heel. We had her husba nd just offload it and been using antibiotic ointment on the wound. She was actually supposed to fol low up with me today in the clinic and yesterday she started having chest pain and a bad headache and went to the Emergency Room. She has been seen by Dr. Briceno he does not think it is an acute STEM I and her symptoms have mostly resolved. She has had a stress test this morning, the results ae stil l pending, but she says now she feels fine. No chest pain, no shortness of breath and no more headac he. She has pretty advanced chronic kidney disease and she sees Dr. Jordan Fernando who had told her that she is likely going to need dialysis in the fairly near future. She also sees Dr. Meliza Bailey as he r primary care doctor. He is the one who referred her initially to the wound center. MEDICATIONS: Consist of: 1. Colace. 2. Neurontin. 3. Toprol. 4. Aspirin. 5. Synthroid. 6. Clonidine. 7. Subcutaneous heparin. 8. Bicitra. 9. Iron. 10. Lipitor. 11. Pepcid. 12. Insulin. ALLERGIES: CODEINE. PAST SURGICAL HISTORY: Significant for cholecystectomy, hysterectomy, knee surgery, right shoulder s urgery and she has a pacemaker in the left chest. SOCIAL HISTORY: She is a nonsmoker. She does not drink or use any illicit drugs. She lives at home with her who is very involved with her care and has several children that are involved with her care as well. FAMILY HISTORY: Significant for diabetes in multiple family members. REVIEW OF SYSTEMS: She currently denies any complaints. She has no chest pain, no shortness of wes th, no nausea, no vomiting, no diarrhea, no fever, no chills, no recent weight gain or weight loss. Apparently, her pacemaker does need a battery change in the near future, but other than that, she has no issues at present. PHYSICAL EXAMINATION GENERAL: She is an elderly woman. She speaks [place] fluently. VITAL SIGNS: He has been afebrile and blood pressure is 136/62, heart rate 60, respiratory rate is 1 8. She is 100% sat on 2 liter nasal cannula. She has 2+ radial and brachial pulses bilaterally. Savana thomas has a left chest wall pacemaker. There is no arm edema. NECK: She has 2+ carotid pulses bilaterally. LUNGS: Clear. HEART: Regular rate and rhythm. ABDOMEN: Soft, nontender, nondistended. EXTREMITIES: She has 2+ femoral, popliteal, DP and PT pulses bilaterally. The right heel wound look s like it is completely healed now. There is some dry callus over it and some flaky skin that I peel ed away, but the wound itself is closed. LABORATORY DATA: Show normal white count, hemoglobin is 11, creatinine is in the 3 range and this ac tually came down from 3.3 to 2.8 overnight. Chest x-ray was normal and she had a stress test and alli t is pending. IMPRESSION: Right heel ulcer which is now closed. She has good pulses in her feet. She has chronic kidney disease and will likely need dialysis access. At some point in the future and actually we guzman d her scheduled for vein mapping and followup. I will see her back after the vein mapping and from a vascular standpoint, she is doing fine and I will just keep an eye on her in the office once she is discharged. Dictated By: CHRISTIANNE VAUGHN/PIERRE Conf#: [id number] DID#: [id number] CC: DEBORAH KENNEDY MD; Work; MELIZA BAILEY MD;*EndCC*
--- NOTE | 2019-04-01 14:40 | DS ---
Date/Time of Note Date/Time of Note DATE: 04/01/19 TIME: 14:37 Discharge Summary Admission/Discharge Info Admit Date/Time Mar 31, 2019 at 13:53 Discharge Date/Time Discharge Diagnosis 1. Chest pain. A small size partially reversible perfusion defect involving the inferior wall per nuclear medicine myocardial perfusion study. 2. Hypertension. 3. Chronic kidney disease. 4. Diabetes mellitus type 2. A1C 7.2. 5. Chronic anemia. 6. Permanent pacemaker status. 7. Right heel ulcer. Patient Condition: Stable Consults 1. Naa Cai MD, Cardiology. 2. Kevyn Ayala MD, Vascular Surgery. Procedures [place] [address] Radiology Main Line: [phone] DIAGNOSTIC IMAGING REPORT Patient: NIKKY PACE : 1930 Age: 88 Sex: F MR #: [id number] DOS: 04/01/19 0000 Ordering MD: NAA CAI Location: [facility] Room/Bed: [facility] PROCEDURE: Lexiscan myocardial perfusion study CLINICAL INDICATION: 88 -year-old patient complaining of chest pain. TECHNIQUE: Lexiscan 0.4 mg intravenously separate acquisition gated myocardial perfusion SPECT using Tc 99m Myoview 27.5 mCi intravenously at stress and Tc-99m Myoview, 9.2 mCi intravenously at rest was performed using the rest/stress sequence. Poststress Myoview SPECT images were obtained in the supine position. COMPARISON: No prior studies. FINDINGS: Perfusion images reveal a small size mild in degree partially reversible perfusion defect in the inferior wall. There is evidence of a transient ischemic dilatation of the left ventricle. Lexiscan post stress gated SPECT images demonstrate no wall motion abnormalities. IMPRESSION: 1. The type and distribution of the scintigraphic abnormalities are most consistent with a small size partially reversible perfusion defect involve the inferior wall. 2. Transient ischemic dilatation of the left ventricle. 3. No wall motion abnormalities. 4. The left ventricle ejection fraction at stress is 56%. 2D Echocardiogram Conclusions: Normal left ventricular systolic function. Normal left ventricular cavity size. Mild concentric left ventricular hypertrophy. Ejection fraction is visually estimated at 65 %. Tissue Doppler/Mitral Doppler indices are consistent with impaired relaxation (Stage I diastolic dysfunction). No significant valvular stenosis or regurgitation seen. Normal right ventricular systolic pressure. The estimated Peak RVSP is 15 mmHg. Normal size and normal respiratory collapse consistent with normal right atrial pressure. Hx of Present Illness Reason for admission: Chest pain. Consultants 1. Naa Cai, Cardiology. This is a 88-year-old female with past medical history of hypertension, diabetes mellitus type 2, hypothyroidism, chronic kidney disease who follows up with , chronic anemia, chronic constipation, and a history of permanent pacemaker placement. The patient came to the emergency room with chief complaint of chest pain that started since the night of 03/30/2019. The patient verbalized the chest pain as constant chest tightness. The patient was also verbalizing headache in the occipital area associated with the chest pain. The patient denied any radiation of the chest pain to her arms. She denied any nausea, vomiting, or diaphoresis. However, she was complaining of frequent belching on 03/31/2019. The patient denied any dizziness. She denied any changes in vision. She denied any fevers or chills. She denied any dyspnea or cough. The patient follows up with outpatient farm appraiser, Dr. Chen. As per the patient, she had her permanent pacemaker checked recently and was told she needs to have the PPM battery replaced in the near future. Although, the patient verbalized that she had a heart attack, she denied any history of coronary angiogram, angioplasty, or stent placement. In the emergency room, the patient was noticed to have a blood pressure 160/84. The patient's initial set of troponin was negative. The patient's chest x-ray was showing minimal bibasilar atelectasis. Twelve-lead EKG was showing junctional rhythm. She was treated with a single dose of aspirin 324 mg orally. Hospital Course The patient was admitted to inpatient telemetry floor. A cardiology consult was obtained. Serial troponins were ordered. The patient's serial troponins remained negative. The patient underwent a 2D echocardiogram that was showing preserved left ventricular ejection fraction. Patient underwent a nuclear medicine myocardial perfusion study that was showing a small sized partially reversible perfusion defect involving the inferior wall. Given the perfusion defects, cardiology recommended to manage the patient medically versus aggressive management including use of IV dye for left heart catheterization that increases the risk of worsening the patient's underlying kidney function. Nevertheless, the patient was informed to follow-up with her primary farm appraiser with the Lexiscan results at the earliest and defer further ma nagement of the patient's primary farm appraiser. The patient's chronic problems include hypertension. The patient was maintained on antihypertensives for the same. The patient has underlying chronic kidney disease. The patient follows up with outpatient nephrology. The patient was maintained on alkalizing agents for chronic metabolic acidosis, secondary to worsening renal function. The patient has underlying diabetes with this type II. The patient's hemoglobin A1c was found to be 7.2. All the oral agents were held and the patient was maintained on sliding scale insulin along with basal insulin with well-controlled blood sugars throughout the hospital course. The patient has underlying anemia. The patient was maintained on iron supplements. The patient has a permanent pacemaker in place. As per the patient, this was recently evaluated by her primary farm appraiser. The patient also has a right heel ulceration and she follows up with outpatient vascular surgery. The patient's vascular surgeon was able to evaluate her during this hospitalization. The patient had a stable hospital course. The patient's chest pain has been res olved. The patient was instructed to follow-up with her primary farm appraiser at the latest with the Lexiscan stress test results. The patient was started on aspirin because of underlying Lexiscan's findings and this will be continued upon discharge. Discharge Instructions 1. Resume home medications. Start taking low-dose aspirin. 2. Follow a low-cholesterol, low carbohydrate diet. 3. Resume activities as tolerated. 4. Follow-up with your farm appraiser with the results of the stress test from [facility] at the earliest. 5. Please go to the nearest emergency room if you have any chest pain, significant shortness of breath, or any other unusual signs/symptoms. The patient verbalized understanding of the discharge instructions. At this time I would like to thank all the consultants for seeing the patient and providing clinical recommendations. The patient was seen in collaboration with Dr. Kennedy. Home Meds Active Scripts Aspirin Delayed Release (Aspirin Delayed Release) 81 Mg Tablet., 81 MG PO DAILY, #30 TAB Prov:LIBRA MEREDITH CHAINSTITCH FELLED SEAM OPERATOR 04/01/19 Reported Medications Famotidine/Ca Carb/Mag Hydrox (TUMS DUAL ACTION TABLET CHEW) 1 Each Tab.chew, 2 TAB PO DAILY, TAB.CHEW 03/31/19 Citric Acid/Sodium Citrate* (Bicitra* (PEDIATRIC)) 1 Meq/Ml Soln, 30 ML PO BID for 30 Days, BOTTLE 03/31/19 Simvastatin* (Simvastatin*) 5 Mg Tablet, 5 MG PO QHS, #30 TAB 03/31/19 Metoprolol Succinate* (Toprol XL*) 50 Mg Tab.er.24h, 50 MG PO DAILY, #30 TAB 03/31/19 Levothyroxine Sodium* (Levothyroxine Sodium*) 112 Mcg Tablet, 112 MCG PO BEFORE BREAKFAST, #30 TAB 03/31/19 Sitagliptin* (Januvia*) 25 Mg Tablet, 25 MG PO DAILY, #30 TAB 03/31/19 Hydrochlorothiazide* (Hydrochlorothiazide*) 25 Mg Tab, 25 MG PO DAILY, #30 TAB 03/31/19 Glipizide* (Glipizide ER*) 2.5 Mg Tab.er.24, 2.5 MG PO BID, TAB 03/31/19 Gabapentin* (Gabapentin*) 300 Mg Capsule, 300 MG PO DAILY, #60 CAP 03/31/19 Ferrous Sulfate* (Ferrous Sulfate*) 325 Mg Tabec, 325 MG PO TID, TAB 03/31/19 Docusate Sodium* (Colace*) 100 Mg Capsule, 100 MG PO DAILY, #30 CAP 03/31/19 Clonidine Hcl* (Clonidine Hcl*) 0.1 Mg Tab, 0.1 MG PO Q8, TAB 03/31/19 Bromfenac Sodium (Bromfenac Sodium) 1.7 Ml Drops, 1.7 ML OP QPM, BOTTLE 03/31/19 Discontinued Reported Medications Nitroglycerin* (Nitroglycerin* SL) 0.4 Mg Tab.subl, 0.4 MG SL CHEST [id number] PRN 11/11/12 Zolpidem Tartrate* (Ambien*) 5 Mg Tablet, 5 MG PO HS PRN 11/11/12 Oxycodone Hcl-Acetaminophen* (Percocet*) 1 Tab Tablet, 1 TAB PO Q3H PRN 11/11/12 Morphine Sulfate (Morphine) 2 Mg/Ml Soln, 3 MG IM SEVERE PAIN PRN 11/11/12 Lactulose (Lactulose) 10 G/15 Ml Solution, 30 G PO CONSTIPATION PRN 11/11/12 Insulin Aspart (Novolog) 100 U/Ml Cartridge, 0 SQ SLIDING SCALE 11/11/12 Docusate Sodium (Dss) 100 Mg Capsule, 200 MG PO PRN 11/11/12 Cranberry Extract (Cranberry Juice Powder) 425 Mg Capsule, 425 MG PO TID 11/11/12 Metformin* (Glucophage*) 500 Mg Tab, 250 MG PO BID 11/11/12 Amlodipine Besylate* (Norvasc*) 5 Mg Tablet, 5 MG PO DAILY 11/11/12 Losartan Potassium* (Cozaar*) 25 Mg Tablet, 12.5 MG PO BID 11/11/12 Simvastatin* (Zocor*) 5 Mg Tablet, 5 MG PO HS 11/11/12 Levothyroxine Sodium* (Levothyroxine Sodium*) 112 Mcg Tablet, 112 MCG PO DAILY 11/02/12 Acetaminophen (Tylenol) 500 Mg Tab, 500 MG PO PRN 07/27/12 Sitagliptin* (Januvia*) 100 Mg Tablet, 100 MG PO DAILY 07/27/12 Follow-up Plan Follow-up with your outpatient farm appraiser at the earliest. Primary Care Provider Not On Staff Doctor Time spent on discharge: > 30 minutes Pending Labs Laboratory Tests Test 03/31/19 17:04 03/31/19 18:38 03/31/19 20:47 04/01/19 00:21 Creatine 95 72 Kinase IU/L (23-200) IU/L (23-200) Creatine Kinase 1.1 0.9 Index Creatinine 1.03 0.68 Kinase MB ng/ml (0.0-2.4) ng/ml (0.0-2.4 (Mass) ) Troponin I 0.018 0.032 ng/ml (0.000-0. ng/ml (0.000-0 120) .120) Free Thyroxine 1.65 ng/dl (0.85-1.9 3) Bedside 160 250 Glucose mg/dL (70-220) mg/dL (70-220) Test 04/01/19 06:24 04/01/19 08:03 04/01/19 12:27 White Blood 7.7 Count 10^3/ul (4.8-10 .8) Red Blood 3.27 Count 10^6/ul (4.20-5 .40) Hemoglobin 11.2 g/dl (12.0-16.0 ) Hematocrit 34.8 % (37.0-47.0) Mean 106.4 Corpuscular fl (82.0-101.0) Volume Mean 34.3 Corpuscular pg (29.0-33.0) Hemoglobin Mean 32.2 Corpuscular g/dl (32.0-37.0 Hemoglobin Conc ) ent Red Cell 12.7 Distribution % (11.5-14.5) Width Platelet Count 168 10^3/UL (140-41 5) Mean Platelet 11.3 Volume fl (7.4-10.4) Immature 0.700 Granulocytes % % (0.001-0.429) Neutrophils % 59.4 % (39.0-77.0) Lymphocytes % 16.0 % (15.0-51.0) Monocytes % 7.6 % (0.0-11.0) Eosinophils % 15.4 % (0.0-7.0) Basophils % 0.9 % (0.0-2.0) Nucleated Red 0.0 Blood Cells % /100WBC (0.0-0. 0) Immature 0.050 Granulocytes # 10^3/ul (0.0-0. 031) Neutrophils # 4.6 10^3/ul (1.6-7. 5) Lymphocytes # 1.2 10^3/ul (0.8-2. 9) Monocytes # 0.6 10^3/ul (0.3-0. 9) Eosinophils # 1.2 10^3/ul (0.0-0. 5) Basophils # 0.1 10^3/ul (0.0-0. 1) Nucleated Red 0.0 Blood Cells # 10^3/ul (0.0-0. 0) Sodium Level 136 mmol/L (135-144 ) Potassium 4.6 Level mmol/L (3.5-5.1 ) Chloride Level 100 mmol/L (97-110) Carbon Dioxide 28 Level mmol/L (21-31) Anion Gap 8 (5-13) Blood Urea 46 mg/dl (7-20) Nitrogen Creatinine 2.87 mg/dl (0.44-1.0 0) Est Glomerular mL/min (>60) Filtrat Rate mL/min Glucose Level 170 mg/dl (70-220) Calcium Level 8.8 mg/dl (8.4-10.2 ) Phosphorus 4.8 Level mg/dl (2.5-4.9) Magnesium 1.9 Level mg/dl (1.7-2.5) Troponin I 0.035 ng/ml (0.000-0. 120) Triglycerides 128 Level mg/dl (0-149) Cholesterol 143 Level mg/dl (100-200) LDL 74 mg/dl Cholesterol, Calculated HDL 43 Cholesterol mg/dl (33-92) Cholesterol/HDL 3.3 RATIO Ratio Bedside 167 194 Glucose mg/dL (70-220) mg/dL (70-220) LIBRA MEREDITH NP Apr 01, 2019 14:40
== END 2019-04-01 15:55 | disposition home or self-care (01) | DRG 313 ==
LOC: E/R 10:36 → TEL 13:53
PROVIDERS: ADMIT Internal Medicine; ATTEND Internal Medicine
DX: R07.9 Chest pain, unspecified (principal); L97.419 Non-pressure chronic ulcer of right heel and midfoot with unspecified severity; E78.5 Hyperlipidemia, unspecified; I25.10 Atherosclerotic heart disease of native coronary artery without angina pectoris; E03.9 Hypothyroidism, unspecified; D64.9 Anemia, unspecified; I12.9 Hypertensive chronic kidney disease with stage 1 through stage 4 chronic kidney disease, or unspecified chronic kidney disease; E11.22 Type 2 diabetes mellitus with diabetic chronic kidney disease; N18.9 Chronic kidney disease, unspecified; K59.09 Other constipation; R51 Headache; I25.2 Old myocardial infarction; Z79.4 Long term (current) use of insulin; Z95.0 Presence of cardiac pacemaker; Z90.49 Acquired absence of other specified parts of digestive tract; Z90.710 Acquired absence of both cervix and uterus
CPT/HCPCS: 36415; 71045; 78452; 80048; 80061; 82550; 82553; 82962; 83036; 83735; 83880; 84100; 84439; 84443; 84484; 85025; 85610; 93005; 93017; 93306; A9500; A9505; J1644; J1815; J2785